=== PATIENT | male | born 1965 | race Caucasian/White ===

== ENCOUNTER 2018-05-17 08:54 | Emergency (ER) | payer OTHER ==
[~2018-05-17] VITALS: Ht 185.4 cm; Wt 108.9 kg
[~2018-05-17 08:54] MED LIST: DULOXETINE HCL60 MG PO; LISINOPRIL10 M1 PO; SUBOXONE 8 MG-1 EACH SL
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
[2018-05-17] MEDS ORDERED: KETOROLAC TROME10 M1 PO (12:59)
[2018-05-17 14:04] VITALS: BP 129/85
== END 2018-05-17 14:06 ==
LOC: ERH 08:54
DX: S52.571A Other intraarticular fracture of lower end of right radius, initial encounter for closed fracture (principal); S50.811A Abrasion of right forearm, initial encounter; S80.212A Abrasion, left knee, initial encounter; S00.31XA Abrasion of nose, initial encounter; V29.40XA Motorcycle driver injured in collision with unspecified motor vehicles in traffic accident, initial encounter; Y92.9 Unspecified place or not applicable
CPT/HCPCS: 73110-RT; 96372; J1885